=== PATIENT | male | born 1950 | race Hispanic/Latino ===

== ENCOUNTER → 2018-03-15 | Outpatient (CLI) | payer MEDICARE, OTHER ==
[~2018-03-15] MED LIST: ACETAMINOPHEN650 M1 PO; ASPIRIN81 M1 PO; GLIPIZIDE ER10 MG PO; LOSARTAN POTASS50 MG PO; METFORMIN HCL500 MG PO; OXYBUTYNIN CHLO15 MG PO; SIMVASTATIN40 MG PO; [UNRECOGNIZED DRUG - OTHER] PO
--- NOTE | 2018-03-15 11:11 | Diagnostic Imaging Report ---
TECHNIQUE: Magnetic resonance imaging of the LEFT SHOULDER was performed WITHOUT injected contrast. Motion artifact partially limits sensitivity and specificity of the exam. HISTORY: Left shoulder impingement , fell COMPARISON: None available. FINDINGS: MUSCLES AND TENDONS: Rotator Cuff: Tendons: Supraspinatus and Infraspinatus: A high-grade tear of the anterior supraspinatus with probable full-thickness component, the defect measures 1.5 cm (AP) x 0.8 cm (ML). Teres Minor: Intact Subscapularis: Intact Muscles: No focal muscle atrophy. Biceps Tendon: The long head of the biceps tendon is intact and within the intertubercular groove. GLENOHUMERAL JOINT: Glenoid Labrum: Mild attenuation and contour irregularity of the labrum, most notably the posterior superior and posterior labrum. Articular Cartilage: Low-grade diffuse erosion. Joint Fluid: No effusion. ACROMIOCLAVICULAR JOINT: Severe hypertrophic degenerative changes of the acromioclavicular joint. Trace effusion and synovitis. BONE: The acromion is unremarkable. The bone marrow signal is heterogeneous, compatible with red marrow conversion, no specific evidence of a focal bone marrow replacing abnormality. No acute fracture. SOFT TISSUES: Otherwise, unremarkable. IMPRESSION: 1. High-grade tear of the anterior supraspinatus tendon. 2. 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 3. Mild degenerative changes of the glenohumeral joint, including mild degenerative tearing of the glenoid labrum. Signed by: Dr. Sekou Philip D.O., M.M.M. on 03/15/2018 11:07 AM
== END ==
LOC: MRI 07:55
PROVIDERS: ATTEND Family Medicine
DX: M75.42 Impingement syndrome of left shoulder (principal); S46.012A Strain of muscle(s) and tendon(s) of the rotator cuff of left shoulder, initial encounter; W18.30XA Fall on same level, unspecified, initial encounter

== ENCOUNTER → 2018-05-11 | Day surgery (SDC) | payer MEDICARE, OTHER ==
[2018-05-09 10:19] LABS: ANION GAP 11.3 mmol/L (8-16); BLOOD UREA NITROGEN 16 mg/dL (7-26); BUN/CREATININE RATIO 20 (6-25); CALCIUM 8.6 mg/dL (8.4-10.2); CARBON DIOXIDE 25 mmol/L (22-29); CHLORIDE 106 mmol/L (98-107); CREATININE, SERUM 0.81 mg/dL (0.72-1.25); EST GLOMERULAR FILTRATION RATE > 60 ML/MIN (60-); GLUCOSE 146 mg/dL (74-118); POTASSIUM 4.3 mmol/L (3.5-5.1); SODIUM 138 mmol/L (136-145)
--- NOTE | 2018-05-09 10:22 | Diagnostic Imaging Report ---
EXAMINATION: CHEST 2 VIEWS INDICATION: Pre-admit. COMPARISON: None FINDINGS: TUBES and LINES: None. LUNGS: Lungs are well inflated. Lungs are clear. There is no evidence of pneumonia or pulmonary edema. PLEURA: No pleural effusion or pneumothorax. HEART AND MEDIASTINUM: The cardiomediastinal silhouette is unremarkable. BONES AND SOFT TISSUES: There are minimally displaced subacute, healing fractures of the left posterolateral eighth, and possibly seventh and ninth ribs. UPPER ABDOMEN: No free air under the diaphragm. IMPRESSION: Minimally displaced subacute healing fractures of the left posterolateral eighth, and possibly seventh and ninth ribs. Clear lungs. Signed by: Dr. Luisa Bertrand MD on 05/09/2018 10:19 AM
[2018-05-09 10:26] LABS: BASOPHILS % 0.3 % (0.0-1.0); EOSINOPHILS # (AUTO) 0.2 (0.0-0.4); EOSINOPHILS % 2.7 % (0.0-6.0); HEMOGLOBIN 13.5 g/dL (14.0-18.0); LYMPHOCYTES # (AUTO) 2.8 (1.0-3.2); LYMPHOCYTES % 38.8 % (18.0-39.1); MEAN CORPUSCULAR HEMOGLOBIN 31.3 pg (28-32); MEAN CORPUSCULAR HGB CONC 32.9 g/dL (31-35); MEAN CORPUSCULAR VOLUME 95.1 fL (81-99); MONOCYTES # (AUTO) 0.5 (0.2-0.8); MONOCYTES % 7.3 % (4.4-11.3); NEUTROPHILS # (AUTO) 3.7 (2.1-6.9); NEUTROPHILS % 50.4 % (38.7-80.0); PLATELET COUNT 225 x10e3/uL (140-360); RED BLOOD COUNT 4.31 x10e6/uL (4.3-5.7); RED CELL DISTRIBUTION WIDTH 13.5 % (11.7-14.4)
[~2018-05-11] MED LIST changes: +CEFAZOLIN SOD 2 GM/D5W 50ML 50 ML IV ONE; +DEXAMETHASONE SOD PHOS INJ 4 MG/ML VIAL ONE; +EPHEDRINE SULFATE INJ 50 MG/10 ML SYR ONE; +EPINEPHRINE HCL 1:1000 1ML 1 MG/ML AMP ONE; +FENTANYL CITRATE/PF 100MCG/2 ML INJ ONE; +HYDROCODONE/APAP 5MG-325MG TAB ONE; +INSULIN REGULAR, HUMAN 100 UNIT/1 ML 3ML VIAL ONE; +KETOROLAC TROMETHAMINE 30 MG/ML VIAL ONE; +LIDOCAINE 2% /EPINEPHRINE 20 ML SDV INJ ONE; +LIDOCAINE HCL 2% LOCAL INJ 5 ML SDV VIAL INJ ONE; +MIDAZOLAM HCL 2 MG/2 ML VIAL ONE; +ONDANSETRON HCL INJ 2MG/ML 2ML 2 MG/ML VIAL ONE; +PRAVASTATIN SOD40 MG; +PROPOFOL IV EMULSION 10 MG/ML 20 ML VIAL ONE; +ROCURONIUM BROMIDE 10 MG/ML 5ML VIAL ONE; +ROPIVACAINE 0.5% 5 MG/ML 30 ML SDV ONE; +SEVOFLURANE INHAL SOLN 250 ML PEN BTL ONE; +TESTOSTERONE5 GM INJ
--- OUTSIDE RECORDS SUMMARY | 2018-05-11 05:16 | XMS REPORT ---
Author Author [facility] Address Unknown Phone Unavailable Care Team Providers Care Manager Business Planning Name Role Phone STEPHANI LOBATO Unavailable Unavailable ANABEL, VU Unavailable Unavailable Problems This patient has no known problems. Allergies, Adverse Reactions, Alerts This patient has no known allergies or adverse reactions. Medications This patient has no known medications. Results Test Description Test Time Test Comments Text Results Atomic Results Result Comments CHEST 2 VIEWS 2018-05-09 10:15:00 [place] [address] Patient Name: NOLVIA HAILE MR #: [id number] : 1950 Age/Sex: 68/M Req #: [id number] Adm Physician: Ordered by: STEPHANI LOBATO MD Report #: [id number] Location: OR Room/Bed: Procedure: [id number] DX/CHEST 2 VIEWS Exam Date: 05/09/18 Exam Time: 1000 REPORT STATUS: Signed EXAMINATION: CHEST 2 VIEWS INDICATION: Pre-admit. COMPARISON: None FINDINGS: TUBES and LINES: None. LUNGS: Lungs are well inflated. Lungs are clear. There is no evidence of pneumonia or pulmonary edema. PLEURA: No pleural effusion or pneumothorax. HEART AND MEDIASTINUM: The cardiomediastinal silhouette is unremarkable. BONES AND SOFT TISSUES: There are minimally displaced subacute, healing fractures of the left posterolateral eighth, and possibly seventh and ninth ribs. UPPER ABDOMEN: No free air under the diaphragm. IMPRESSION: Minimally displaced subacute healing fractures of the left posterolateral eighth, and possibly seventh and ninth ribs. Clear lungs. Signed by: Dr. Henny Jc MD on 05/09/2018 10:19 AM Dictated By: HENNY JC MD [id number] Transcribed By: CHRISTINE on 05/09/18 1019 COPY TO: STEPHANI LOBATO MD MRI SHOULDER LEFT WO 2018-03-15 11:02:00 [place] [address] Patient Name: NOLVIA HAILE MR #: [id number] : 1950 Age/Sex: 68/M Req #: [id number] Adm Physician: Ordered by: JAMIE LITTLE MD Report #: [id number] Location: MRI Room/Bed: Procedure: [id number] MRI/MRI SHOULDER LEFT WO Exam Date: 03/15/18 Exam Time: 0815 REPORT STATUS: Signed TECHNIQUE: Magnetic resonance imaging of the LEFT SHOULDER was performed WITHOUT injected contrast. Motion artifact partially limits sensitivity and specificity of the exam. HISTORY: Left shoulder impingement , fell COMPARISON: None available. FINDINGS: MUSCLES AND TENDONS: Rotator Cuff: Tendons: Supraspinatus and Infraspinatus: A high-grade tear of the anterior supraspinatus with probable full-thickness component, the defect measures 1.5 cm (AP) x 0.8 cm (ML). Teres Minor: Intact Subscapularis: Intact Muscles: No focal muscle atrophy. Biceps Tendon: The long head of the biceps tendon is intact and within the intertubercular groove. GLENOHUMERAL JOINT: Glenoid Labrum: Mild attenuation and contour irregularity of the labrum, most notably the posterior superior and posterior labrum. Articular Cartilage: Low-grade diffuse erosion. Joint Fluid: No effusion. ACROMIOCLAVICULAR JOINT: Severe hypertrophic degenerative changes of the acromioclavicular joint. Trace effusion and synovitis. BONE: The acromion is unremarkable. The bone marrow signal is heterogeneous, compatible with red marrow conversion, no specific evidence of a focal bone marrow replacing abnormality. No acute fracture. SOFT TISSUES: Otherwise, unremarkable. IMPRESSION: 1. High-grade tear of the anterior supraspinatus tendon. 2. 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 3. Mild degenerative changes of the glenohumeral joint, including mild degenerative tearing of the glenoid labrum. Signed by: Ger FelderODeven, M.M.M. on 03/15/2018 11:07 AM Dictated By: YVONNE SAMSON DO Transcribed By: CHRISTINE on 03/15/181106 COPY TO: JAMIE LITTLE MD
[2018-05-11 11:35] VITALS: BP 120/54
--- NOTE | 2018-05-12 01:41 | Operative Report ---
DATE OF PROCEDURE: 05/11/2018 SURGEON: Kev Skinner MD PREOPERATIVE DIAGNOSES: 1. Left shoulder rotator cuff tear. 2. Left shoulder acromioclavicular joint arthritis. POSTOPERATIVE DIAGNOSES: 1. Left shoulder rotator cuff tear, left shoulder labral tear, left shoulder biceps tendon tear, left shoulder acromioclavicular joint arthrosis. OPERATION/PROCEDURE PERFORMED: The patient underwent a left shoulder examination under anesthesia, left shoulder arthroscopy, left shoulder debridement of a labral tear, left shoulder debridement of biceps tendon tear, left shoulder arthroscopic rotator cuff reconstruction, left shoulder arthroscopic subacromial decompression and acromioplasty and left shoulder arthroscopic distal clavicle resection. NATIONAL SALES TRAINER: Estrella Romo. ANESTHESIA: General endotracheal intubation anesthesia. INTRAVENOUS FLUIDS: Per the Anesthesia record. BRIEF DISCUSSION OF THE PATIENT'S OPERATIVE PROCEDURE: Mr. Rivera was taken to the operating room and placed in the supine position on the operating table. Following induction of general anesthesia as well as endotracheal intubation, the patient's left upper extremity was examined under anesthesia. He was found to have no gross abnormalities of the shoulder joint. Shoulder had normal passive range of motion. There is no evidence of instability. The patient's upper extremity was prepped and draped in the standard surgical fashion. Standard posterolateral and anterior port was created without difficulty. The scope was placed within the shoulder atraumatically and examination of the glenohumeral articulation demonstrated no significant evidence of arthrosis. There was a tear of the anterior aspect of the labrum. There was also a tear in the biceps tendon at the exit of the shoulder. There were no loose bodies in the shoulder joint. There was a full thickness tear of the leading edge of the rotator cuff. A shaver was placed in the shoulder joint and the patient's labral tear was debrided. The biceps tendon injury was also debrided at this time. The torn rotator cuff was likely debrided. The incision site for the rotator cuff was debrided through a bleeding bed. The shoulder was inflated with sterile normal saline. The scope was placed in the subacromial space and significant bursal inflammation was encountered. A lateral portal was created with an [id number]. A bursectomy was performed. The patient's rotator cuff entry was easily identified. A single triple-loaded suture anchor was inserted into the greater tuberosity of the humerus. The suture arms were then woven to the rotator cuff tissue and the rotator cuff was then advanced into his normal incision site. This resulted in reapproximation of the rotator cuff, at its normal incision area. The coracoacromial ligament was resected. An acromioplasty was performed. The anterior portal was then transferred into the subacromial space at the level of the acromioclavicular joint. A 1-cm section of the distal clavicle was then resected under direct visualization. The shoulder was inflated with sterile normal saline. The portal sites were closed using 4-0 nylon suture. The portal sites as well as the shoulder itself were injected with 0.5% Marcaine with epinephrine. Sterile dressings were applied. The patient was provided with shoulder immobilizer, awaken and taken to the postanesthesia care unit in stable condition. Estrella Romo acted as the first officer and flight instructor for this case and was necessary for both prepping and draping the patient as well as positioning the arm during the surgery and the passage of suture during the surgery to allow the case to be successful. MD CARLITOS De Los Santos/JEISON /[id number]
== END | disposition home or self-care (01) ==
LOC: OR 05:12
PROVIDERS: ATTEND Specialist
DX: M75.122 Complete rotator cuff tear or rupture of left shoulder, not specified as traumatic (principal); S46.212A Strain of muscle, fascia and tendon of other parts of biceps, left arm, initial encounter; S46.812A Strain of other muscles, fascia and tendons at shoulder and upper arm level, left arm, initial encounter; M19.012 Primary osteoarthritis, left shoulder; M19.90 Unspecified osteoarthritis, unspecified site; E11.9 Type 2 diabetes mellitus without complications; Z79.82 Long term (current) use of aspirin; Z79.84 Long term (current) use of oral hypoglycemic drugs; Z88.1 Allergy status to other antibiotic agents; Z01.810 Encounter for preprocedural cardiovascular examination; Z01.812 Encounter for preprocedural laboratory examination; Z01.811 Encounter for preprocedural respiratory examination
CPT/HCPCS: 29826; 29827; 29828; 36415 ×2; 71046; 80048; 82948; 85025; 93005; J0171; J0690; J1100; J1817; J1885; J2001 ×2; J2250; J2405; J2704; J2795